=== PATIENT | female | born 1945 | race African-American/Black ===

== ENCOUNTER 2022-06-28 07:10 | Emergency (ER) | payer OTHER ==
[~2022-06-28] VITALS: Ht 172.7 cm; Wt 104.3 kg
[2022-06-28] MEDS ORDERED: ZOCOR40 MG PO (07:17)
== END 2022-06-28 14:11 | disposition home or self-care (01) ==
LOC: ER 07:10
DX: R11.10 Vomiting, unspecified (principal); R10.13 Epigastric pain; Z86.79 Personal history of other diseases of the circulatory system